=== PATIENT | female | born 1970 | race Caucasian/White ===

== ENCOUNTER → 2019-03-17 | Outpatient (CLI) | payer BC ==
[~2019-03-17] MED LIST: CATHETER FLUSH 10 ML SYR IV PRN; HOLD METFORMIN - RECEIVED CONTRAST 20 ML VIAL IV SCH; IOHEXOL 350 MG/ML 100 ML (OMNIPAQUE 350) VIAL IV ONE; NS 100 ML (IVPB) BAG IV ONE
--- NOTE | 2019-03-17 10:42 | Diagnostic Imaging Report ---
PROCEDURE: CT pelvis with contrast. TECHNIQUE: Oral and intravenous contrast were administered with pelvic CT performed. Auto Exposure Controls were utilized during the CT exam to meet ALARA standards for radiation dose reduction. INDICATION: Hysterectomy, pelvic mass COMPARISON: None. FINDINGS: There is mild to moderate inflammatory change seen within the deep central pelvis superior to the urinary bladder. Diverticulosis is seen involving the sigmoid colon. There is a tiny fluid collection containing 2 gas bubbles just superior to the urinary bladder. Findings likely represent perforated diverticulitis. No drainable abscess is seen. There is no mass or lymphadenopathy. Vascular structures are grossly normal. Distal ureters and urinary bladder are normal. Osseous structures are age-appropriate. IMPRESSION: 1. Diverticulosis with associated acute diverticulitis deep within the pelvis. There is a tiny fluid collection containing gas just superior to the urinary bladder likely enrollment representative of a contained perforation. No drainable abscess is seen. 2. No pelvic mass or lymphadenopathy. Dictated by: Dictated on workstation # [id number]
== END ==
LOC: RAD FS 09:45
PROVIDERS: ATTEND Obstetrics & Gynecology
DX: K57.30 Diverticulosis of large intestine without perforation or abscess without bleeding (principal); K57.32 Diverticulitis of large intestine without perforation or abscess without bleeding; R19.00 Intra-abdominal and pelvic swelling, mass and lump, unspecified site
CPT/HCPCS: 72193

== ENCOUNTER → 2020-12-20 | Outpatient (CLI) | payer OTHER ==
--- NOTE | 2020-12-20 11:34 | Diagnostic Imaging Report ---
INDICATION: Right hand pain, history of arthritis AP and lateral views of the right hand are obtained. No fracture or acute bony abnormality is seen. There are osteoarthritic changes of the 2nd and 3rd DIP joints. Remaining joint spaces are unremarkable. IMPRESSION: Osteoarthritic changes of the 2nd and 3rd DIP joints. No other abnormal findings. Dictated by: Dictated on workstation # [id number]
--- NOTE | 2020-12-20 12:51 | Diagnostic Imaging Report ---
EXAMINATION: Left knee at 10:20 AM. INDICATION: Knee pain. TECHNIQUE/COMPARISON: AP and lateral views were obtained. There are no prior studies available for comparison. FINDINGS: There is no fracture, dislocation, or acute bony abnormality evident. The knee joint is fairly well maintained. The soft tissues are unremarkable. IMPRESSION: There is no evidence for an acute bony abnormality. Dictated by: Dictated on workstation # [id number]
== END ==
LOC: RAD 09:48
PROVIDERS: ATTEND Surgery
DX: Z02.71 Encounter for disability determination (principal); M19.041 Primary osteoarthritis, right hand; M25.562 Pain in left knee
CPT/HCPCS: 73120; 73560

== ENCOUNTER → 2020-12-27 | Outpatient (CLI) | payer OTHER | LOC: LAB 09:58 | DX: Z02.71 Encounter for disability determination (principal); E16.2 Hypoglycemia, unspecified; M06.9 Rheumatoid arthritis, unspecified | CPT/HCPCS: 36415; 85652; 86431 ==